=== PATIENT | male | born 1970 | race African-American/Black ===

== ENCOUNTER 2016-09-28 07:55 | Day surgery (SDC) | payer OTHER ==
[~2016-09-28 07:55] MED LIST: PROPOFOL INJ 200 MG/20 ML VIAL IV ONE
[2016-09-28 09:27] VITALS: BP 142/94
--- NOTE | 2016-09-28 13:37 | Operative Report ---
Operative Report DATE OF SURGERY: 09/28/16 Operative Report: The risks, benefits and alternatives of the procedure including risks of bleeding, perforation requiring surgery are explained to the patient detail and informed consents obtained. Patient is taken back to the endoscopy suite and placed in a left, lateral decubital position. Timeout is called. Propofol medications administered. A rectal examination was done which did not reveal any masses, tears or fissures. An Olympus videoscope this inserted into the patient's rectum. The scope was then gradually advanced all the way to the cecum. The cecum was identified by the usual anatomical landmarks of the ileocecal valve as well as the appendiceal office. Photodocumentation was obtained. Prep is good. The scope was then sequentially pulled back creative rest segments of the colon including the ascending colon, hepatic flexure, transverse colon, splenic flexure, descending colon and finally into the rectosigmoid portions of the colon. Retroflexion maneuver performed. PREOPERATIVE DIAGNOSIS: Blood in stool POSTOPERATIVE DIAGNOSIS: Internal hemorrhoids. Right-sided colon inflammation status post biopsy rule out lymphocytic, microscopic, collagenous colitis. OPERATION: Colonoscopy with biopsy. SURGEON: DELGADO EUBANKS ANESTHESIA: LMAC TISSUE REMOVED OR ALTERED: Right-sided colon biopsies specimens obtained COMPLICATIONS: None. ESTIMATED BLOOD LOSS: none INTRAOPERATIVE FINDINGS: As described above. No AVMs, diverticulosis. PROCEDURE: Patient tolerated procedure well. No immediate postprocedure complications are noted. Patient is discharged in good condition. Discharge date 09/28/2016. Discharge activity: Regular. Discharge diet: Regular. 2-3 week follow-up to discuss findings. We'll await on biopsies. Patient is instructed to call the office or proceed to the emergency room should there be any further problems or questions.
== END 2016-09-28 09:30 | disposition home or self-care (01) ==
LOC: END 07:55
PROVIDERS: ATTEND Internal Medicine Gastroenterology
PROC: 0DBF8ZX Excision of Right Large Intestine, Via Natural or Artificial Opening Endoscopic, Diagnostic (ICD-10-PCS; principal; 2016-09-28 09:00)
DX: K21.9 Gastro-esophageal reflux disease without esophagitis (principal); I10 Essential (primary) hypertension; K64.8 Other hemorrhoids; K52.9 Noninfective gastroenteritis and colitis, unspecified; K62.89 Other specified diseases of anus and rectum; M19.90 Unspecified osteoarthritis, unspecified site; E29.1 Testicular hypofunction; E66.01 Morbid (severe) obesity due to excess calories; Z68.41 Body mass index [BMI] 40.0-44.9, adult; Z79.899 Other long term (current) drug therapy; Z79.4 Long term (current) use of insulin; Z79.891 Long term (current) use of opiate analgesic
CPT/HCPCS: 45380; 88305 ×2; J2704; 810

== ENCOUNTER 2017-10-29 17:24 | Emergency (ER) | payer OTHER ==
--- NOTE | 2017-10-29 17:47 | ER Document Report ---
ED General - General TRAVEL OUTSIDE OF THE [place] IN LAST 30 DAYS: No <IRAM JANSEN - Last Filed: 10/30/17 14:28> <MOHAN LOZANO - Last Filed: 10/31/17 11:20> - General Chief Complaint: Feet Swelling Stated Complaint: RIGHT FOOT SWELLING,SHORT OF BREATH Time Seen by Provider: 10/29/17 17:41 Notes: Patient is a 47 year old male that presents to the emergency department today with complaints of right foot swelling for a week. Patient mentions he has had bilateral leg swelling which is chronic for him however his right leg and foot have been much more swollen than normal. Patient has had associated shortness of breath, cough, dyspnea on exertion. Patient denies any trauma to the foot, lacerations or unhealing wounds, chest pain, or history of PE/DVT. I have greeted and performed a rapid initial assessment of this patient. A comprehensive ED assessment and evaluation of the patient, analysis of test results, and completion of the medical decision making process will be conducted by additional ED providers. Review of systems: Constitutional: No symptoms reported EENT: No symptoms reported Cardiovascular: No symptoms reported Respiratory: No symptoms reported Gastrointestinal: No symptoms reported Genitourinary: No symptoms reported Musculoskeletal: Right foot/leg swelling Skin: No symptoms reported Hematologic/Lymphatic: No symptoms reported Neurological/Psychological: No symptoms reported Yes All other systems reviewed and negative Physical Exam: General: Alert, appears well. HEENT: Normocephalic. Atraumatic. PERRLA. Extraocular movements intact. Oropharynx clear. Neck: Supple. Respiratory: No respiratory distress. Abdominal: Normal Inspection. No distension. Extremities: 2+ pitting edema to right lower extremity, 1+ pitting edema to left lower extremity. Neurological: Normal cognition. AAOx4. Normal speech. Psychological: Normal affect. Normal Mood. Skin: Warm. Dry. Normal color. (IRAM JANSEN) - Related Data Allergies/Adverse Reactions: No Known Allergies Allergy (Verified 10/29/17 17:25) Past Medical History - Social History Smoking Status: Never Smoker Frequency of alcohol use: None Drug Abuse: None Family History: Reviewed & Not Pertinent Patient has suicidal ideation: No Patient has homicidal ideation: No - Past Medical History Cardiac Medical History: Reports: Hx Hypertension Denies: Hx Coronary Artery Disease, Hx Heart Attack Pulmonary Medical History: Denies: Hx Asthma, Hx Bronchitis, Hx COPD, Hx Pneumonia Neurological Medical History: Denies: Hx Cerebrovascular Accident, Hx Seizures Renal/ Medical History: Denies: Hx Peritoneal Dialysis Musculoskeltal Medical History: Denies Hx Arthritis - Immunizations Hx Diphtheria, Pertussis, Tetanus Vaccination: No <IRAM JANSEN - Last Filed: 10/30/17 14:28> - Vital signs Vitals: Temp Pulse Resp BP Pulse Ox 97.6 F 93 18 182/109 H 95 10/29/17 17:35 10/29/17 17:35 10/29/17 17:35 10/29/17 17:35 10/29/17 17:35 Course - Laboratory Result Diagrams: 10/29/17 18:10 10/29/17 18:10 <IRAM JANSEN - Last Filed: 10/30/17 14:28> - Laboratory Result Diagrams: 10/29/17 18:10 10/29/17 18:10 <MOHAN LOZANO - Last Filed: 10/31/17 11:20> - Vital Signs Vital signs: Temp Pulse Resp BP Pulse Ox 97.9 F 93 20 160/107 H 99 10/29/17 20:56 10/29/17 17:35 10/29/17 20:55 10/29/17 20:56 10/29/17 20:56 - Laboratory Laboratory results interpreted by me: 10/29/17 18:10 Chloride 97 L Carbon Dioxide 35 H ALT 90 H Discharge <IRAM JANSEN - Last Filed: 10/30/17 14:28> <MOHAN LOZANO - Last Filed: 10/31/17 11:20> - Discharge Clinical Impression: Bilateral lower extremity edema, Cough, Shortness of breath, Morbid obesity, Essential hypertension Condition: Good Disposition: HOME, SELF-CARE Additional Instructions: Today your labs and x-ray as well as her ultrasound of your legs is normal. Your leg swelling is present on both sides and may be slightly worse in the right side at baseline. Wear the compression stockings that have been provided today to help reduce the swelling. At this time, we do not suspect any life- threatening cause of her symptoms. As we discussed today, please strongly consider losing weight. Your obesity will result in a shorter life and serious diagnoses including heart attacks, stroke, diabetes, high blood pressure, high cholesterol, kidney failure, and will also result in a much less enjoyable life due to these chronic conditions. Focus on gradual life style changes including removing sugared beverages and processed foods from your diet and at least 30 minutes of moderate activity daily. Try to target 4-5lbs of weight loss per month. Referrals: CHUCK DASILVA DO [Primary Care Provider] - Follow up as needed Scribe Attestation: 10/31/17 11:20 I personally performed the services described in the documentation, reviewed and edited the documentation which was dictated to the scribe in my presence, and it accurately records my words and actions. (MOHAN LOZANO)
[2017-10-29 18:31] LABS: ABSOLUTE EOSINOPHILS # (AUTO) 0.1 10^3/uL (0.0-0.6); ABSOLUTE LYMPHOCYTES (AUTO) 3.9 10^3/uL (0.5-4.7); ABSOLUTE MONOCYTES (AUTO) 1.2 10^3/uL (0.1-1.4); BASOPHILS % (AUTO) 0.3 % (0-2); EOSINOPHILS % (AUTO) 1.3 % (0-6); HEMATOCRIT 43.7 % (37.9-51.0); HEMOGLOBIN 14.7 g/dL (13.5-17.0); LYMPHOCYTES % (AUTO) 42.2 % (13-45); MEAN CORPUSCULAR HEMOGLOBIN 32.4 pg (27.0-33.4); MEAN CORPUSCULAR HGB CONC 33.7 g/dL (32.0-36.0); MEAN CORPUSCULAR VOLUME 96 fl (80-97); PLATELET COUNT 222 10^3/uL (150-450); RED BLOOD COUNT 4.55 10^6/uL (4.35-5.55); RED CELL DISTRIBUTION WIDTH 13.5 % (11.5-14.0); SEGMENTED NEUTROPHILS % (AUTO) 43.2 % (42-78); TOTAL CELLS COUNTED % (AUTO) 100 %; WHITE BLOOD COUNT 9.2 10^3/uL (4.0-10.5)
[2017-10-29 18:45] LABS: ALANINE AMINOTRANSFERASE 90 U/L (21-72); ALBUMIN 3.9 g/dL (3.5-5.0); ALKALINE PHOSPHATASE 60 U/L (38-126); ANION GAP 11 (5-19); ASPARTATE AMINO TRANSFERASE 54 U/L (17-59); BILIRUBIN,DIRECT 0.2 mg/dL (0.0-0.4); BILIRUBIN,TOTAL 0.8 mg/dL (0.2-1.3); BLOOD UREA NITROGEN 11 mg/dL (7-20); CALCIUM 9.9 mg/dL (8.4-10.2); CARBON DIOXIDE 35 mmol/L (22-30); CHLORIDE 97 mmol/L (98-107); GLUCOSE 85 mg/dL (75-110); POTASSIUM 4.3 mmol/L (3.6-5.0); SODIUM 142.5 mmol/L (137-145); TOTAL PROTEIN 7.4 g/dL (6.3-8.2)
--- NOTE | 2017-10-29 18:46 | RADIOLOGY REPORT (SQ) ---
EXAM DESCRIPTION: CHEST 2 VIEWS COMPLETED DATE/TIME: 10/29/2017 6:37 pm REASON FOR STUDY: SOB, non-productive cough COMPARISON: 01/17/2013 EXAM PARAMETERS: NUMBER OF VIEWS: two views TECHNIQUE: Digital Frontal and Lateral radiographic views of the chest acquired. RADIATION DOSE: NA LIMITATIONS: none FINDINGS: LUNGS AND PLEURA: No opacities, masses or pneumothorax. No pleural effusion. MEDIASTINUM AND HILAR STRUCTURES: No masses or contour abnormalities. HEART AND VASCULAR STRUCTURES: Heart normal size. No evidence for failure. BONES: No acute findings. HARDWARE: None in the chest. OTHER: No other significant finding. IMPRESSION: NO ACUTE RADIOGRAPHIC FINDING IN THE CHEST. TECHNICAL DOCUMENTATION: JOB ID: [id number] [employer]- All Rights Reserved Reading location - IP/workstation name: [email or web address]
[2017-10-29 18:57] LABS: NT PRO BNP 26 pg/mL (<125); TROPONIN I < 0.012 ng/mL
--- NOTE | 2017-10-29 20:46 | ER Document Report ---
ED General - General Chief Complaint: Feet Swelling Stated Complaint: RIGHT FOOT SWELLING,SHORT OF BREATH Time Seen by Provider: 10/29/17 17:41 Notes: Patient is a 47-year-old male with a past medical history of morbid obesity and essential hypertension who presents with 1 week of cough, intermittent shortness of breath and right foot swelling. The patient states that his right foot swelling has worsened over the past 1 week and nothing seems to improve or worsening swelling other than when he stands on his feet for prolonged periods of time which she notes often seems to be the trigger for the foot swelling. He denies any history of DVT or pulmonary embolus. No known cardiac problems. He states his shortness of breath has been more of a noticeable fatigue that he gets with any form of exertion that is more so than he usually has. He denies any shortness of breath or chest pain, assessment. He has not seen his primary doctor regarding today's concerns. TRAVEL OUTSIDE OF THE [place] IN LAST 30 DAYS: No - Related Data Allergies/Adverse Reactions: No Known Allergies Allergy (Verified 10/29/17 17:25) Past Medical History - General Information source: Patient - Social History Smoking Status: Never Smoker Frequency of alcohol use: None Drug Abuse: None Lives with: Spouse/Significant other Family History: Reviewed & Not Pertinent Patient has suicidal ideation: No Patient has homicidal ideation: No - Past Medical History Cardiac Medical History: Reports: Hx Hypertension Denies: Hx Coronary Artery Disease, Hx Heart Attack Pulmonary Medical History: Denies: Hx Asthma, Hx Bronchitis, Hx COPD, Hx Pneumonia Neurological Medical History: Denies: Hx Cerebrovascular Accident, Hx Seizures Renal/ Medical History: Denies: Hx Peritoneal Dialysis Musculoskeltal Medical History: Denies Hx Arthritis - Immunizations Hx Diphtheria, Pertussis, Tetanus Vaccination: No Review of Systems - Review of Systems Notes: Constitutional: Negative for fever. HENT: Negative for sore throat. Eyes: Negative for visual changes. Cardiovascular: Negative for chest pain. Respiratory: Positive for shortness of breath. Gastrointestinal: Negative for abdominal pain, vomiting or diarrhea. Genitourinary: Negative for dysuria. Musculoskeletal: Positive for bilateral lower extremity edema Skin: Negative for rash. Neurological: Negative for headaches, weakness or numbness. 10 point ROS negative except as marked above and in HPI. Physical Exam - Vital signs Vitals: Temp Pulse Resp BP Pulse Ox 97.6 F 93 18 182/109 H 95 10/29/17 17:35 10/29/17 17:35 10/29/17 17:35 10/29/17 17:35 10/29/17 17:35 Interpretation: Normal Notes: PHYSICAL EXAMINATION: GENERAL: Well-appearing, well-nourished and in no acute distress. HEAD: Atraumatic, normocephalic. EYES: Pupils equal round and reactive to light, extraocular movements intact, sclera anicteric, conjunctiva are normal. ENT: nares patent, oropharynx clear without exudates. Moist mucous membranes. NECK: Normal range of motion, supple without lymphadenopathy LUNGS: Breath sounds clear to auscultation bilaterally and equal. No wheezes rales or rhonchi. HEART: Regular rate and rhythm without murmurs ABDOMEN: Soft, morbidly obese abdomen, nontender, normoactive bowel sounds. No guarding, no rebound. No masses appreciated. EXTREMITIES: Normal range of motion, 2+ pitting edema that is equal and symmetric in the bilateral lower extremities NEUROLOGICAL: No focal neurological deficits. Moves all extremities spontaneously and on command. PSYCH: Normal mood, normal affect. SKIN: Warm, Dry, normal turgor, no rashes or lesions noted. Course - Re-evaluation Re-evalutation: 10/29/17 20:44 Patient presents with 1 week of shortness of breath, cough, as well as concerns of right lower extremity edema. Patient is overall well in appearance, vitals within normal limits with exception of hypertension which patient has at baseline. On examination he has 2+ pitting edema in the bilateral lower extremities that is symmetric by my exam although the patient states that he feels it is worse in the right. Venous Doppler of the bilateral lower extremities is normal without any evidence of a blood clot. Patient is PERC criteria negative and I do not clinically suspect an acute pulmonary embolus as the etiology of his presentation of some shortness of breath. I suspect he likely has a post viral syndrome as he knows that the symptoms started after he had had coughing and an upper respiratory infection for approximate the past 2 weeks which he has recently been getting over. His chest x-ray is clear without any evidence of a pneumothorax or infiltrate. There are no suggestions of congestive failure based on his BNP or lack of edema on the chest x-ray. Troponin is normal. Remainder the physical examination is otherwise unremarkable. Patient I have had a in-depth conversation about the need for urgent weight loss as this is likely part of the etiology of both the shortness of breath as well as his lower extremity edema. At this time will discharge with return precautions and follow-up recommendations. Verbal discharge instructions given a the bedside and opportunity for questions given. Medication warnings reviewed. Patient is in agreement with this plan and has verbalized understanding of return precautions and the need for primary care follow-up in the next 24-72 hours. - Vital Signs Vital signs: Temp Pulse Resp BP Pulse Ox 97.9 F 93 20 160/107 H 99 10/29/17 20:56 10/29/17 17:35 10/29/17 20:55 10/29/17 20:56 10/29/17 20:56 - Laboratory Result Diagrams: 10/29/17 18:10 10/29/17 18:10 Laboratory results interpreted by me: 10/29/17 18:10 Chloride 97 L Carbon Dioxide 35 H ALT 90 H - Diagnostic Test Radiology reviewed: Image reviewed, Reports reviewed Radiology results interpreted by me: 10/29/17 20:46 Chest x-ray: No acute infiltrate or pneumothorax - EKG Interpretation by Me Additional EKG results interpreted by me: 10/29/17 20:46 Normal sinus rhythm. Rate 87. No ST elevations or depressions. QTC is 453. Discharge - Discharge Clinical Impression: Bilateral lower extremity edema, Cough, Shortness of breath, Morbid obesity, Essential hypertension Condition: Good Disposition: HOME, SELF-CARE Additional Instructions: Today your labs and x-ray as well as her ultrasound of your legs is normal. Your leg swelling is present on both sides and may be slightly worse in the right side at baseline. Wear the compression stockings that have been provided today to help reduce the swelling. At this time, we do not suspect any life- threatening cause of her symptoms. As we discussed today, please strongly consider losing weight. Your obesity will result in a shorter life and serious diagnoses including heart attacks, stroke, diabetes, high blood pressure, high cholesterol, kidney failure, and will also result in a much less enjoyable life due to these chronic conditions. Focus on gradual life style changes including removing sugared beverages and processed foods from your diet and at least 30 minutes of moderate activity daily. Try to target 4-5lbs of weight loss per month. Referrals: VIDYA,CHUCK, DO [Primary Care Provider] - Follow up as needed
[2017-10-29 21:00] VITALS: BP 160/107
--- NOTE | 2017-10-29 21:23 | EKG REPORT ---
SEVERITY:- NORMAL ECG - SINUS RHYTHM : Confirmed by: Christa Dunn 29-Oct-2017 21:22:26
--- NOTE | 2017-10-30 10:01 | XCELERA REPORT ---
[address] [address] Lower Extremity Venous Evaluation Name: HONG ASENCIO Age: 47 yrs Gender: Male : 1970 Patient Status: Emergency Patient Location: ER Study Date: 10/29/2017 07:19 PM Procedure: Color flow and duplex imaging bilaterally of the veins of the lower extremities as well as the Common Femoral veins. Reason For Study: b/l LE swelling, worse on R than L Ordering Physician: MOHAN LOZANO Performed By: Marbella Olsen Right Sided Venous Evaluation Normal vessel filling wall to wall, compression and augmentation as well as Colour flow down to the infrageniculate veins. Left Sided Venous Evaluation Normal vessel filling wall to wall, compression and augmentation as well as Colour flow down to the infrageniculate veins. Interpretation Summary No duplex evidence of DVT or obstruction in the bilateral lower extremities. : MOHAN LOZANO > Julio Carlson
== END 2017-10-29 21:01 | disposition home or self-care (01) ==
LOC: ER 17:24
DX: R60.9 Edema, unspecified (principal); R06.02 Shortness of breath; E66.01 Morbid (severe) obesity due to excess calories; R05 Cough; I10 Essential (primary) hypertension
CPT/HCPCS: 36415; 71046; 80053; 83735; 83880; 84484; 85025; 93005; 93010; 93970; 99284

== ENCOUNTER → 2018-02-03 | Outpatient (CLI) | payer OTHER ==
--- NOTE | 2018-02-03 16:58 | RADIOLOGY REPORT (SQ) ---
EXAM DESCRIPTION: KNEE RIGHT 4 VIEWS COMPLETED DATE/TIME: 02/03/2018 4:49 pm REASON FOR STUDY: PAIN IN RIGHT KNEE M25.561 PAIN IN RIGHT KNEE COMPARISON: 10/16/2014 NUMBER OF VIEWS: Four views. TECHNIQUE: AP, lateral, and both oblique radiographic images acquired of the right knee. LIMITATIONS: None. FINDINGS: MINERALIZATION: Normal. BONES: No acute fracture or dislocation. No worrisome bone lesions. JOINT: No effusion. SOFT TISSUES: No soft tissue swelling. No radio-opaque foreign body. OTHER: No other significant finding. IMPRESSION: NEGATIVE STUDY OF THE RIGHT KNEE. NO RADIOGRAPHIC EVIDENCE OF ACUTE INJURY. TECHNICAL DOCUMENTATION: JOB ID: [id number] [employer]- All Rights Reserved Reading location - IP/workstation name: [email or web address]
== END ==
LOC: OD 16:08
PROVIDERS: ATTEND Family Medicine
DX: M25.561 Pain in right knee (principal)

== ENCOUNTER → 2019-09-14 | Outpatient (CLI) | payer OTHER ==
--- NOTE | 2019-09-14 16:24 | RADIOLOGY REPORT (SQ) ---
EXAM DESCRIPTION: KNEE LEFT 4 VIEWS COMPLETED DATE/TIME: 09/14/2019 2:55 pm REASON FOR STUDY: GIUSEPPE KNEE PAIN M25.562 PAIN IN LEFT KNEE M25.561 PAIN IN RIGHT KNEE COMPARISON: None. NUMBER OF VIEWS: Four views. TECHNIQUE: AP, lateral, and both oblique radiographic images acquired of the left knee. LIMITATIONS: None. FINDINGS: MINERALIZATION: Normal. BONES: No acute fracture or dislocation. No worrisome bone lesions. JOINT: Mild medial compartment narrowing. No suprapatellar effusion. SOFT TISSUES: No soft tissue swelling. No radio-opaque foreign body. OTHER: No other significant finding. IMPRESSION: NEGATIVE STUDY OF THE LEFT KNEE. NO RADIOGRAPHIC EVIDENCE OF ACUTE INJURY. TECHNICAL DOCUMENTATION: JOB ID: [id number] [employer]- All Rights Reserved Reading location - IP/workstation name: [email or web address]
--- NOTE | 2019-09-14 16:27 | RADIOLOGY REPORT (SQ) ---
EXAM DESCRIPTION: KNEE RIGHT 4 VIEWS COMPLETED DATE/TIME: 09/14/2019 2:55 pm REASON FOR STUDY: GIUSEPPE KNEE PAIN M25.562 PAIN IN LEFT KNEE M25.561 PAIN IN RIGHT KNEE COMPARISON: 10/16/2014 NUMBER OF VIEWS: Four views. TECHNIQUE: AP, lateral, and both oblique radiographic images acquired of the right knee. LIMITATIONS: None. FINDINGS: MINERALIZATION: Normal. BONES: No acute fracture or dislocation. No worrisome bone lesions. JOINT: No effusion. SOFT TISSUES: No soft tissue swelling. No radio-opaque foreign body. OTHER: No other significant finding. IMPRESSION: NEGATIVE STUDY OF THE RIGHT KNEE. NO RADIOGRAPHIC EVIDENCE OF ACUTE INJURY. TECHNICAL DOCUMENTATION: JOB ID: [id number] [employer]- All Rights Reserved Reading location - IP/workstation name: [email or web address]
== END ==
LOC: OD 14:37
PROVIDERS: ATTEND Family Medicine
DX: M25.562 Pain in left knee (principal); M25.561 Pain in right knee